=== PATIENT | female | born 1995 | race Hispanic/Latino ===

== ENCOUNTER 2019-05-20 12:18 | Inpatient (IN) | payer MEDICAID, OTHER, SELFPAY ==
[2019-05-20] MEDS ORDERED: Bupivacaine 0.25% HCL 30 ML VIAL ONE (12:49)
[2019-05-20] MEDS ORDERED: Butorphanol Tartrate 1 MG/ML VIAL SLOW IVP PRN (13:36)
[2019-05-20] MEDS ORDERED: Lidocaine 1% (PF) 30 ML VIAL SC PRN (13:36)
[2019-05-20] MEDS ORDERED: Carboprost 250 MCG/ML AMP IM PRN (13:36)
[2019-05-20] MEDS ORDERED: Acetaminophen 500 MG TAB PO PRN (13:36)
[2019-05-20] MEDS ORDERED: Methylergonovine 0.2 MG/ML VIAL IM PRN (13:36)
[2019-05-20] MEDS ORDERED: hydrALAZINE 20 MG/ML VIAL SLOW IVP PRN (13:36)
[2019-05-20] MEDS ORDERED: Diphenoxylate HCl/Atropine Tablet PO PRN ×2 (13:36)
[2019-05-20] MEDS ORDERED: Docusate 100 MG CAP PO PRN (13:36)
[2019-05-20] MEDS ORDERED: Ibuprofen 800 MG TAB PO PRN (13:36)
[2019-05-20] MEDS ORDERED: Promethazine HCl 25 MG/ML VIAL IM PRN (13:36)
[2019-05-20] MEDS ORDERED: Ondansetron PF 4 MG/2 ML Vial IVP PRN (13:36)
[2019-05-20] MEDS ORDERED: HYDROcodone/Acetaminophen 5/325 mg Tablet PO PRN ×2 (13:36)
[2019-05-20] MEDS ORDERED: Misoprostol 200 MCG TAB PR PRN (13:36)
--- NOTE | 2019-05-20 13:43 | PDOC.LDHP ---
Labor and Delivery H&P Chief complaint: contractions, loss of fluid HPI: 23 y/o at 37 and 6/7 with GDM, noncompliance with home glucose testing , and suspected poor glucose control. Patient presents in Labor and with SROM on L&D. Current gestational age (weeks): 37 Due date: 06/04/19 Grav: 4 Para: 3 Current complications: gestational diabetes Abnormal US findings: No Current medications: pre- vitamins Social history: none - Physical Exam Vital signs reviewed and normal: yes General: NAD, resting, breathing through contractions Heart: RRR Lungs: CTAB Abdomen: gravid Extremeties: no edema FHT: category 1 - Assessment L&D Assessment: term patient in labor - Plan Plan: admit to L&D
[2019-05-20] MEDS: Lactated Ringer's 1,000 ML IV SCH ×4 (13:45→18:35)
[2019-05-20] MEDS ORDERED: NS w/ Oxytocin 10 units 500 ML IV SCH ×2 (13:45)
[2019-05-20 14:44] LABS: Hemoglobin 11.5 g/dL (12.0-16.0); Mean Corpuscular HGB CONC 34.4 g/dL (32.0-36.0); Mean Corpuscular Hemoglobin 31.4 pg (27.0-31.0); Mean Corpuscular Volume 91.2 fL (78.0-98.0); Mean Platelet Volume 10.4 fL (7.4-10.4); Platelet Count 169 thou/uL (130-400); RBC Distribution Width 12.3 % (11.5-14.5); Red Blood Cell (RBC) Count 3.66 mill/uL (4.20-5.40); White Blood Cell (WBC) Count 12.9 thou/uL (4.8-10.8)
[2019-05-20] MEDS ORDERED: NS w/ Oxytocin 10 units 500 ML ONE (14:53)
[2019-05-20 15:14] LABS: ALT (SGPT) 13 U/L (8-55); AST (SGOT) 14 U/L (5-34); Albumin 3.1 g/dL (3.5-5.0); Alkaline Phosphatase 105 U/L (40-110); Anion Gap 17 mmol/L (10-20); BUN (Urea Nitrogen) 6 mg/dL (7.0-18.7); Bilirubin, Total 0.6 mg/dL (0.2-1.2); Calc. Creatinine Clearance 234 mL/min (70-130); Carbon Dioxide 20 mmol/L (22-29); Chloride 105 mmol/L (98-107); Estimated GFR-MDRD Greater than 90; Globulin 3.2 g/dL (2.4-3.5); Glucose 120 mg/dL (70-105); Potassium 4.2 mmol/L (3.5-5.1); Protein, Total 6.3 g/dL (6.0-8.3); Sodium 138 mmol/L (136-145)
[2019-05-20 15:23] LABS: Syphilis Antibody Nonreactive (Nonreactive); Syphilis Antibody Index 0.05 S/CO (<1.00 Non-Reactive)
[2019-05-20 15:24] LABS: HBSAg Index 0.28 S/CO (0-0.99); Hep B Surf Ag Non-Reactive S/CO (NonReactive)
[2019-05-20] MEDS ORDERED: Fentanyl 4 mcg/Bup 0.1% Cadd 100 ML ONE ×2 (17:07→23:23)
[2019-05-20] MEDS ORDERED: Bupivacaine 0.5% 10 ML VIAL ONE (17:31)
[2019-05-20] MEDS ORDERED: Fentanyl 100 MCG/2 ML VIAL ONE (17:31)
[2019-05-20] MEDS: CEFAZOLIN 2 GM in Premix Bag 1 BAG IVPB SCH (18:36)
[2019-05-20] MEDS: NS / Oxytocin 40 units/1000ml 1,000 ML IV PRN (23:50)
[2019-05-21] MEDS: NS / Oxytocin 40 units/1000ml 1,000 ML IV PRN (02:23)
[2019-05-21] MEDS ORDERED: Ondansetron PF 4 MG/2 ML Vial IVP PRN (02:53)
[2019-05-21] MEDS ORDERED: Methylergonovine 0.2 MG/ML VIAL IM PRN (02:53)
[2019-05-21] MEDS ORDERED: NS / Oxytocin 40 units/1000ml 1,000 ML IV SCH (02:53)
[2019-05-21] MEDS ORDERED: Promethazine HCl 25 MG/ML VIAL IM PRN (02:53)
[2019-05-21] MEDS ORDERED: Zolpidem Tartrate 5 MG TAB PO PRN (02:53)
[2019-05-21] MEDS ORDERED: Milk Of Magnesia 30 ML UDCUP PO PRN (02:53)
[2019-05-21] MEDS ORDERED: Bisacodyl 10 MG SUPP PR PRN (02:53)
[2019-05-21] MEDS ORDERED: hydrALAZINE 20 MG/ML VIAL SLOW IVP PRN (02:53)
[2019-05-21] MEDS ORDERED: Benzocaine-Menthol 82.5 ML CAN TOP PRN (02:53)
[2019-05-21] MEDS ORDERED: diphenhydrAMINE 25 MG CAP PO PRN (02:53)
[2019-05-21] MEDS ORDERED: Misoprostol 200 MCG TAB VAG PRN (02:53)
[2019-05-21] MEDS ORDERED: Lanolin Ointment 7 GM TUBE TOP PRN (02:53)
[2019-05-21] MEDS ORDERED: HYDROcodone/Acetaminophen 5/325 mg Tablet PO PRN ×2 (02:53)
[2019-05-21] MEDS ORDERED: Preparation H Ointment 28 GM TUBE PR PRN (02:53)
[2019-05-21] MEDS: Ibuprofen 800 MG TAB PO SCH ×3 (05:21→21:19)
[2019-05-21 06:02] LABS: Hemoglobin 10.3 g/dL (12.0-16.0); Mean Corpuscular HGB CONC 32.3 g/dL (32.0-36.0); Mean Corpuscular Hemoglobin 29.7 pg (27.0-31.0); Mean Corpuscular Volume 91.9 fL (78.0-98.0); Mean Platelet Volume 10.6 fL (7.4-10.4); Platelet Count 164 thou/uL (130-400); RBC Distribution Width 12.2 % (11.5-14.5); Red Blood Cell (RBC) Count 3.46 mill/uL (4.20-5.40); White Blood Cell (WBC) Count 14.3 thou/uL (4.8-10.8)
[2019-05-21] MEDS: CEFAZOLIN 2 GM in Premix Bag 1 BAG IVPB SCH (07:18)
[2019-05-21] MEDS: Ferrous Sulfate 325 MG TAB PO SCH ×2 (08:07→13:47)
[2019-05-21] MEDS ORDERED: Varicella virus, LIVE 0.5 ML VIAL SC ONE (09:00)
[2019-05-21] MEDS ORDERED: FLU VACC QS2019-20(6MOS UP)/PF 60 MCG/0.5 ML SYRINGE IM ONE (09:00)
[2019-05-21] MEDS ORDERED: Measles/Mumps/Rubella 10 MCG/0.5 ML VIAL SC ONE (09:00)
[2019-05-21] MEDS: Adacel (T-DAP) 0.5 ML SYRINGE IM ONE (09:26)
[2019-05-21] MEDS: Docusate Calcium (SURFAK) 240 MG CAP PO SCH ×2 (09:27→21:19)
--- NOTE | 2019-05-21 13:44 | PDOC.PP ---
Post Progress Note Post Day #: 1 PO intake tolerated: yes Flatus: yes Ambulation: yes Vital Signs (12 hours) Temp Pulse Resp BP Pulse Ox 05/21/19 11:03 98.5 F 78 16 123/67 95 05/21/19 07:45 97.9 F 63 20 117/67 96 05/21/19 05:12 98 F 90 18 139/82 05/21/19 04:05 98.0 F 85 18 140/76 05/21/19 03:05 98.2 F 87 18 135/82 98 Weight Weight 228 lb - Physical Examination General: NAD Cardiovascular: no m/r/g, RRR Respiratory: clear to auscultation bilaterally, non-labored breathing Abdominal: + bowel sounds, lochia, no distention Extremities: negative homans (B) Neurological: no gross focal deficits Psychiatric: A&Ox3 Result Diagrams: 05/21/19 05:46 05/20/19 14:30 Additional Labs: Post Labs Blood Type A POSITIVE 05/20/19 15:04 Hep Bs Antigen Non-Reactive S/CO (NonReactive) 05/20/19 14:29
--- NOTE | 2019-05-22 02:21 | DN ---
DATE OF PROCEDURE: 05/20/2019 TIME: At 2345. PREOPERATIVE DIAGNOSIS: Intrauterine at 37 weeks and six days with gestational diabetes, chronic hypertension, obesity in a spontaneous onset of labor. POSTOPERATIVE DIAGNOSIS: Intrauterine at 37 weeks and six days with gestational diabetes, chronic hypertension, obesity in a spontaneous onset of labor. PROCEDURE PERFORMED: Spontaneous vaginal delivery over a first-degree laceration. FINDINGS: Viable male weighing 4153 g or 9 pounds 2 ounces with Apgars of eight and 9. QUANTITATIVE BLOOD LOSS: 455 mL. COMPLICATIONS: None. PROCEDURE IN DETAIL: The patient presented to [facility] where she was admitted to the labor and delivery service. The patient underwent a normal and uneventful labor with normal cervical dilatation until she was found to be completely dilated. She was then allowed to push and was able to bring the baby down and delivered the baby in a vertex presentation without difficulties. Once the head delivered in occiput anterior position, the shoulders followed spontaneously along with the rest of the baby's body. Once out the baby's mouth and nose were bulb suctioned. The cord was clamped and cut and baby was handed to waiting attendants. Cord blood was collected. Gentle fundal massage was performed and the placenta delivered intact without problems. Hemostasis was assured. Quantitative blood loss was calculated. Inspection of the cervix, vaginal vault, and perineum did not reveal any lacerations needing suturing. Once again, hemostasis was within normal limits and the patient was allowed to recover in the labor and delivery room. Baby went to nursery. Job ID: [id number]
[2019-05-22] MEDS: Ibuprofen 800 MG TAB PO SCH ×2 (06:24→13:57)
[2019-05-22] MEDS: Ferrous Sulfate 325 MG TAB PO SCH ×2 (09:49→17:58)
[2019-05-22] MEDS: Docusate Calcium (SURFAK) 240 MG CAP PO SCH (09:49)
[2019-05-22 11:28] VITALS: BP 111/68; TEMP 98.2
[2019-05-22] MEDS: Adacel (T-DAP) 0.5 ML SYRINGE IM ONE (17:59)
== END 2019-05-22 18:24 | disposition home or self-care (01) | DRG 806 ==
LOC: L&D/OP 12:18 → L&D-LIB 19:01 → 3SE 05-21 03:06
PROVIDERS: ADMIT Obstetrics & Gynecology; ATTEND Obstetrics & Gynecology
PROC: 10E0XZZ Delivery of Products of Conception, External Approach (ICD-10-PCS; principal; 2019-05-20)
PROC: 0HQ9XZZ Repair Perineum Skin, External Approach (ICD-10-PCS; 2019-05-20)
DX: O24.425 Gestational diabetes mellitus in childbirth, controlled by oral hypoglycemic drugs (principal); O10.92 Unspecified pre-existing hypertension complicating childbirth; Z37.0 Single live birth; Z3A.37 37 weeks gestation of pregnancy; O99.214 Obesity complicating childbirth; E66.9 Obesity, unspecified; O70.0 First degree perineal laceration during delivery
CPT/HCPCS: 36415; 36416; 51702; 80053; 85027; 86780; 86850; 86900; 86901; 87340; 90715; 99285; J0690; J2590; J3010; J3490; S0020